=== PATIENT | female | born 1990 | race Caucasian/White ===

== ENCOUNTER 2020-04-22 09:19 | Outpatient (REF) | payer OTHER, SELFPAY ==
--- NOTE | 2020-04-22 09:34 | XR_ITS ---
EXAMINATION: XR CHEST CLINICAL INFORMATION: Shortness of breath, wheezing, asthma. COMPARISON: Chest radiographs 09/27/2019 TECHNIQUE: 2 views of the chest were obtained. FINDINGS: There is subsegmental atelectasis right perihilar region with probable small groundglass opacity. The remainder of the lungs are clear. There is no hyperinflation. No lobar or segmental airspace consolidation. The heart is normal in size. The hilar and mediastinal contours and bony structures are unremarkable. XR/XR chest 2V IMPRESSION: Subsegmental atelectasis right perihilar region with small associated groundglass opacity. Remainder of the lungs are clear.
== END 2020-04-22 09:20 | disposition home or self-care (01) ==
LOC: HO.XRAY 09:19
PROVIDERS: PCP Family Medicine; Visit Provider Family Medicine
DX: R06.02 Shortness of breath (principal); J45.909 Unspecified asthma, uncomplicated
CPT/HCPCS: 71046

== ENCOUNTER → 2020-12-11 13:32 | Outpatient (REF) | payer OTHER, SELFPAY ==
--- NOTE | 2020-12-11 13:41 | ECG_ITS ---
Test Reason : ON METADONE Blood Pressure : / mmHG Vent. Rate : 102 BPM Atrial Rate : 102 BPM P-R Int : 146 ms QRS Dur : 070 ms QT Int : 370 ms P-R-T Axes : 033 042 041 degrees QTc Int : 482 ms Sinus tachycardia Otherwise normal ECG No previous ECGs available Referred By: Conor Ray Electronically Signed By:GERA MEDELLIN
== END ==
LOC: HO.CARD 13:32
PROVIDERS: PCP Family Medicine; Visit Provider Family Medicine
DX: Z79.899 Other long term (current) drug therapy (principal)
CPT/HCPCS: 93005